=== PATIENT | female | born 1960 | race Caucasian/White ===

== ENCOUNTER 2016-10-24 08:20 | Day surgery (SDC) | payer OTHER, BC ==
[~2016-10-24] VITALS: Ht 154.9 cm; Wt 75.7 kg
[~2016-10-24 08:20] MED LIST: ARANESP10 MCG/0.4 SC; ARANESP25 MCG/0.4 SC; ASPIRIN81 M2 PO; BENADRYL50 MG PO; GENTAMICIN TP; KLONOPIN0.5 M1 PO; KLONOPIN1 MG PO; MIDRIN1 CAPSULE PO; MIRALAX17 GM PO; NEURONTIN300 MG PO; PLAQUENIL200 MG PO; PROAMATINE5 MG PO; SIMVASTATIN20 MG PO; TUMS500 MG PO; ULTRAM50 MG PO
[2016-10-24 08:53] VITALS: BP 117/63
[2016-10-24 08:54] VITALS: BP 117/63
[2016-10-24 09:00] LABS: HEMATOCRIT 40.3 % (36.0-46.0); MCHC 33.3 G/DL (30.0-36.0); MCV 96.2 FL (83-99); MEAN PLAT.VOLUME 10.4 uM^3 (9.5-12.4); PLATELET COUNT 324 K/uL (156-360); RBC DIS.WIDTH-CV 14.4 % (11.8-14.6); RBC DIS.WIDTH-SD 50.7 % (39-53); RED BLOOD COUNT 4.19 M/uL (3.80-5.20); WHITE BLOOD COUNT 7.5 K/uL (4.1-10.2)
[2016-10-24 09:25] LABS: ANION GAP 14 MEQ/L (2-14); CHLORIDE 93 MEQ/L (99-109); POTASSIUM 3.8 MEQ/L (3.7-5.4); SAMPLE HEMOLYSIS CHECK 0; SAMPLE ICTERIC CHECK 0; SAMPLE LIPEMIA CHECK 0; SODIUM 132 MEQ/L (136-147)
[2016-10-24 09:31] LABS: GFR ESTIMATE (CALCULATED) 5 mL/min/; GLUCOSE 84 mg/dL (70-99); UREA NITROGEN (BUN) 31 mg/dL (9-23)
[2016-10-24 14:27] VITALS: BP 129/77
[2016-10-24 15:29] VITALS: BP 91/60
[2016-10-24 16:33] VITALS: BP 90/62
== END 2016-10-24 16:40 | disposition home or self-care (01) ==
LOC: SDC 08:20
PROVIDERS: Surgery
PROC: 02HV33Z Insertion of Infusion Device into Superior Vena Cava, Percutaneous Approach (ICD-10-PCS; principal; 2016-10-24)
DX: T82.898A Other specified complication of vascular prosthetic devices, implants and grafts, initial encounter (principal); Y83.8 Other surgical procedures as the cause of abnormal reaction of the patient, or of later complication, without mention of misadventure at the time of the procedure; N18.6 End stage renal disease; Z99.2 Dependence on renal dialysis
CPT/HCPCS: 80048; 85027; C1750; C1788; C1894; J0690; J1170; J1644; J2250; J3010